=== PATIENT | male | born 1960 | race Caucasian/White ===

== ENCOUNTER 2017-07-06 09:12 | Emergency (ER) | payer MEDICARE, MEDICAID ==
[~2017-07-06] VITALS: Ht 167.6 cm; Wt 55.0 kg
[~2017-07-06 09:12] MED LIST: ASPI-845 PO; FOLI1TAB16 PO; METO25TA6 PO; NICO-631 TD; OMEP-271 PO
[2017-07-06] MEDS ORDERED: normal saline 1000ML IV soln IVB ONE ×2 (09:20→10:10)
[2017-07-06] MEDS ORDERED: ondansetron/PF 4mg/2ml inj IV ONE (09:20)
[2017-07-06 09:33] LABS: HEMATOCRIT 30.8 % (42.0-52.0); HEMOGLOBIN 9.6 g/dl (14.0-17.9); MEAN CORPUSCULAR HEMOGLOBIN 23.9 PG (27.0-31.0); MEAN CORPUSCULAR HGB CONC 31.2 % (33.0-36.5); MEAN CORPUSCULAR VOLUME 76.8 FL (78-98); MEAN PLATELET VOLUME 7.3 FL (7.4-10.4); PLATELET COUNT 246 X10'3 (140-440); RED BLOOD COUNT 4.01 X10'6 (4.70-6.10)
[2017-07-06 09:49] LABS: ALANINE AMINOTRANSFERASE 49 U/L (12-78); ALBUMIN/GLOBULIN RATIO 0.9 (1.1-1.5); ALKALINE PHOSPHATASE 82 IU/L (46-116); ANION GAP 17 (8-16); ASPARTATE AMINO TRANSFERASE 80 U/L (10-37); BILIRUBIN,TOTAL 0.5 MG/DL (0.1-1.0); BLOOD UREA NITROGEN 7 MG/DL (7-18); CALCIUM 8.9 MG/DL (8.5-10.1); CHLORIDE 99 MMOL/L (99-107); GLUCOSE 103 MG/DL (70-104); LIPASE 165 U/L (73-393); POTASSIUM 3.2 MMOL/L (3.5-5.1); SODIUM 137 MMOL/L (135-145); TOTAL CARBON DIOXIDE 21.3 MMOL/L (24-32); TOTAL PROTEIN 8.7 G/DL (6.4-8.2); eGFR 78 ML/MIN
[2017-07-06 10:12] LABS: ACANTHOCYTES FEW; ANISOCYTOSIS 3+; BURR CELLS 1+; HYPOCHROMASIA 2+; PLATELET ESTIMATE NORMAL; TOTAL CELLS COUNTED 100
[2017-07-06 10:13] LABS: TARGET CELLS 1+
[2017-07-06 10:44] LABS: CLARITY,URINE CLEAR (Clear); COLOR,URINE YELLOW (Yellow); GLUCOSE, URINE NEGATIVE (Neg); KETONES,URINE 15 mg/dl (Neg); LEUKOCYTE ESTERASE ,URINE NEGATIVE (Neg); NITRITES, URINE NEGATIVE (Neg); OCCULT BLOOD,URINE NEGATIVE (Neg); PROTEIN,URINE NEGATIVE (Neg); UROBILINOGEN,URINE 0.2 E.U/dL (0.2-1.0)
[2017-07-06 10:46] LABS: UA COLLECTION TYPE VOIDED
[2017-07-06] MEDS ORDERED: ONDA8TAB9 PO (11:11)
[2017-07-06 11:18] VITALS: BP 102/61
== END 2017-07-06 12:13 | disposition home or self-care (01) ==
LOC: ER 09:12
DX: R11.2 Nausea with vomiting, unspecified (principal); R10.13 Epigastric pain; I10 Essential (primary) hypertension; G89.29 Other chronic pain; F17.200 Nicotine dependence, unspecified, uncomplicated; Z59.0 Homelessness; Z79.82 Long term (current) use of aspirin; Z88.5 Allergy status to narcotic agent
CPT/HCPCS: 36415; 80053; 80320; 81003; 83690; 85025; 96361; 96374; 96375; 99285; J2270; J2405; J7030